=== PATIENT | male | born 1960 | race Caucasian/White ===

== ENCOUNTER → 2017-03-19 | Outpatient (CLI) | payer BC ==
[~2017-03-19] MED LIST: ASPIRIN EC325 MG PO; BENADRYL25 MG PO; BISACODYL5 MG PO; CELECOXIB200 MG PO; IRON325 M1 PO; MEVACOR10 M1 PO; MILK OF MAGNESI10 ML PO; ONDANSETRON ODT4 MG PO; OXYCODONE HCL5 MG PO; ZESTRIL40 MG PO
== END | disposition home or self-care (01) ==
LOC: RAD 12:27
DX: I25.10 Atherosclerotic heart disease of native coronary artery without angina pectoris (principal); I51.7 Cardiomegaly; R94.39 Abnormal result of other cardiovascular function study; I10 Essential (primary) hypertension
CPT/HCPCS: 75574